=== PATIENT | male | born 2000 | race Caucasian/White ===

== ENCOUNTER 2022-04-25 10:45 | Emergency (ER) | payer OTHER, SELFPAY ==
[2022-04-25 11:00] VITALS: BP 122/78; PULSE 95; RESP 20; TEMP 36.8; O2SAT 97
--- NOTE | 2022-04-25 11:49 | ED.URI ---
HPI - URI/Sore Throat General Chief Complaint: Upper Respiratory Infection Stated Complaint: Cough,Vomiting,Headache,Diarrhea Source: patient Mode of arrival: ambulatory History of Present Illness HPI Narrative: This is a 21-year-old male that presented to our urgent care with complaints of a runny nose, headache, nausea vomiting, fever of 101 0, congestion with a cough with yellowish sputum. Patient does eat to see, DayQuil NyQuil at home and Tylenol for his fever. The patient denies SOB, CP, palpitation, extremity numbness, lightheadedness, dizziness, constipation, and diarrhea, Related Data Allergies Allergy/AdvReac Type Severity Reaction Status Date / Time No Known Allergies Allergy Verified 04/25/22 10:59 Review of Systems Review of Systems: A 14 organ system Review of Systems was performed and pertinent positives included in the HPI, otherwise remaining ROS is negative. [facility] Social History Social History Smoking status: Never smoker Second hand tobacco smoke exposure: No Alcohol intake: never Exam Narrative: GENERAL: This is a well-nourished, well-developed patient, in no apparent distress. HEAD: normocephalic, atraumatic. EYES: PERRL. Sclera clear/white. Vision is grossly intact. EARS: External ears normal, auditory canals clear and without drainage, TMs normal without perforation. Hearing grossly intact. NOSE: External nose normal with no obvious nasal discharge, nares without redness, no rhinorrhea. THROAT: Mucous membranes moist, posterior pharynx clear. NECK: Neck supple, non-tender without lymphadenopathy, masses or thyromegaly. CARDIOVASCULAR: Regular rate and rhythm without murmurs, gallops, or rubs. RESPIRATORY: Clear to auscultation. Breath sounds equal bilaterally. No wheezes, rales, or rhonchi. GASTROINTESTINAL: Abdomen soft, non-tender, nondistended. Bowel sounds are active. No hepato-splenomegaly, or palpable masses. No guarding. SKIN: warm, intact with no suspicious lesions or rash, good texture and turgor. NEURO: awake, alert, and oriented to person, place and time. There were no obvious focal neurologic abnormalities. EXTREMITIES: Normal range of motion. No edema. No calf tenderness. Course Course Emergency Course: Patient will be treated with viral illness discharge with does jerod Burnses, guaifenesin, Claritin, Zofran Level of Care: Express Care Visit Vital Signs Vital signs: Vital Signs Temperature 98.3 F 04/25/22 11:00 Pulse Rate 95 04/25/22 11:00 Respiratory Rate 20 04/25/22 11:00 Blood Pressure 122/78 04/25/22 11:00 Pulse Oximetry 97 04/25/22 11:00 Oxygen Delivery Room Air 04/25/22 11:00 Temperature 98.3 F 04/25/22 11:00 Pulse Rate 95 04/25/22 11:00 Respiratory Rate 20 04/25/22 11:00 Blood Pressure 122/78 04/25/22 11:00 Pulse Oximetry 97 04/25/22 11:00 Oxygen Delivery Room Air 04/25/22 11:00 MDM - URI/Sore Throat Differential Diagnosis Differential diagnosis: Likely upper respiratory infection, viral infection, influenza and pharyngitis Discharge Plan Discharge Clinical Impression: Viral infection Patient Disposition: Home, Self-Care Condition: Stable Instructions: Antibiotic Form, Viral Syndrome (ED) Additional Instructions: Follow-up with your primary care physician of things is not improved within 1-2 days Take prescribed medication as instructed When do I need to call the doctor? Fever or cough returns or gets worse Chest pain with deep breathing Confusion or sudden dizziness Very bad throwing up or throwing up that does not stop Trouble breathing Passing less urine You are not feeling better in 2 to 3 days or you are feeling worse Prescriptions: New benzonatate 200 mg capsule 200 mg PO BID PRN (Reason: cough) Qty: 30 0RF guaifenesin 400 mg tablet 400 mg PO QID PRN (Reason: congestion) Qty: 30 0RF loratadine [Claritin] 10 mg tablet 10 mg PO DAILY PRN (Reason: allergic
== END 2022-04-25 11:55 | disposition home or self-care (01) ==
PROVIDERS: Emergency Provider Nurse Practitioner; PCP Physician Assistant
DX: B34.9 Viral infection, unspecified (principal); Z20.822 Contact with and (suspected) exposure to COVID-19
CPT/HCPCS: 87426; 99213; C9803; G0463